=== PATIENT | male | born 1980 | race Caucasian/White ===

== ENCOUNTER 2019-12-25 20:50 | Emergency (ER) | payer OTHER ==
[~2019-12-25] VITALS: Ht 175.3 cm; Wt 84.4 kg
[2019-12-25 20:58] VITALS: Ht 175.3 cm; Wt 84.4 kg
[2019-12-25 23:54] VITALS: BP 122/89
== END 2019-12-25 23:54 | disposition home or self-care (01) ==
LOC: ED 20:50
DX: R13.10 Dysphagia, unspecified (principal); J02.9 Acute pharyngitis, unspecified